=== PATIENT | male | born 1990 | race Caucasian/White ===

== ENCOUNTER 2017-02-09 07:14 | Emergency (ER) | payer OTHER ==
[~2017-02-09] VITALS: Ht 177.8 cm; Wt 86.9 kg
[2017-02-09 09:39] VITALS: BP 137/98
== END 2017-02-09 09:39 | disposition home or self-care (01) ==
LOC: ED 07:14
DX: F41.9 Anxiety disorder, unspecified (principal); G47.00 Insomnia, unspecified

== ENCOUNTER 2019-01-21 07:40 | Emergency (ER) | payer OTHER ==
[~2019-01-21] VITALS: Ht 172.7 cm; Wt 83.0 kg
[2019-01-21 07:57] VITALS: Ht 172.7 cm; Wt 83.0 kg
[2019-01-21 08:28] LABS: BASOPHIL % 0.4 % (0-2); PLATELET COUNT 274 x10^3mcL (130-400); RED CELL DISTRIBUTION WIDTH 12.2 % (11.5-14.5)
[2019-01-21 08:35] LABS: CALCIUM 10.3 mg/dL (8.5-10.1); CARBON DIOXIDE 21.6 mmol/L (21-32); CHLORIDE SERUM 106 mmol/L (98-107); GFR1 > 60 mL/min; GLUCOSE SERUM 116 mg/dL (74-106); POTASSIUM SERUM 3.2 mmol/L (3.5-5.1); SODIUM SERUM 136 mmol/L (136-145)
[2019-01-21 08:38] LABS: AMPHETAMINE QUAL UR NONE DETECTED (See below)
[2019-01-21 08:49] LABS: ALBUMIN 4.4 g/dL (3.4-5.0); ALKALINE PHOSPHATASE 124 U/L (46-116); ALT/SGPT 51 U/L (16-63); AST/SGOT 20 U/L (15-37); BILIRUBIN TOTAL 0.58 mg/dL (0.20-1.00); TOTAL PROTEIN, SERUM 8.1 g/dL (6.4-8.2)
[2019-01-21 08:50] LABS: FREE T4 1.51 ng/dL (0.76-1.46); FREE THYROXINE INDEX 4.3 ug/dL (1.4-4.5); T4(THYROXINE) 11.4 ug/dL (4.7-13.3)
[2019-01-21 08:57] LABS: T3 TOTAL 1.48 ng/mL
[2019-01-21 09:54] VITALS: BP 127/87
== END 2019-01-21 10:13 | disposition home or self-care (01) ==
LOC: ED 07:40
PROVIDERS: Emergency Medicine
DX: F41.9 Anxiety disorder, unspecified (principal); R53.1 Weakness
CPT/HCPCS: 36415; 84439